=== PATIENT | female | born 1995 | race Two or more races ===

== ENCOUNTER 2022-06-17 12:36 | Emergency (ER) | payer MEDICAID, OTHER ==
[~2022-06-17] VITALS: Ht 162.6 cm; Wt 69.0 kg
[2022-06-17 12:47] VITALS: BP 114/65
[2022-06-17] MEDS ORDERED: IBUP-2028 MT (15:26)
== END 2022-06-17 16:26 | disposition home or self-care (01) ==
LOC: ER 13:11
DX: S82.842A Displaced bimalleolar fracture of left lower leg, initial encounter for closed fracture (principal); W10.9XXA Fall (on) (from) unspecified stairs and steps, initial encounter; Y93.89 Activity, other specified; Y92.9 Unspecified place or not applicable
CPT/HCPCS: 29515; 73590; 73610; 73630; 99284; Z7610

== ENCOUNTER 2023-04-06 08:19 | Emergency (ER) | payer MEDICAID ==
[~2023-04-06] VITALS: Ht 165.1 cm; Wt 72.0 kg
[~2023-04-06 08:19] MED LIST: IBUP-2028 MT
[2023-04-06 08:25] VITALS: TEMP 98.7; O2SAT 100
[2023-04-06 11:59] VITALS: BP 104/55; PULSE 81; RESP 20
== END 2023-04-06 11:59 | disposition home or self-care (01) ==
LOC: ER 08:19
DX: R07.89 Other chest pain (principal); M54.9 Dorsalgia, unspecified
CPT/HCPCS: 71045; 81025; 93005; 99283